=== PATIENT | female | born 1980 | race Two or more races ===

== ENCOUNTER → 2017-02-12 | Outpatient (CLI) | payer OTHER ==
--- NOTE | ~2017-02-12 | MY6 ---
[facility] A Service of [facility] & [facility] RADIOLOGY TEXT RESULTS PATIENT: ALICE BONILLA LOCATION: [facility] : [birth year] UNIT #: [id number] AGE: [address]: Zeeshan Doll MD SEX: F ORDER DR: [id number] [facility] [address] [place], [place] [address] [id number] O MR#: [id number] #: [id number] NAME: ALICE BONILLA : 1980 SEX: F STUDY DATE/TIME: 02/12/2017 8:01 UNIT: [facility] ROOM: STUDY DESCRIPTION: MY Mammogram Dx Dig Ramirez Attending Physician: Zeeshan Villalobos M.D. Referring Physician: Zeeshan Villalobos M.D. Ordering Physician: Zeeshan Villalobos M.D. Primary Care Physician: Zeeshan Villalobos M.D. MEDICAL IMAGING REPORT This report is preliminary unless electronic signature is present EXAM Bilateral diagnostic mammogram INDICATION Palpable abnormality right axilla. COMPARISON 03/28/2014, 07/18/2011. FINDINGS MLO, CC and straight ML views of both breasts were obtained. The study was reviewed with an FDA-approved CAD device. The breasts are very dense. They are unchanged in appearance from the prior study. No lymph nodes are visible in the axillary regions on either of these MLO views and none were visible on the previous studies. Ultrasound of the axillary region was performed by the technologist and myself. There are lymph nodes visible in the high axillary regions of each axilla. They all have fatty sara. None appear pathologic. This patient states that she has been feeling this abnormality in the right axilla for at least 3 years. She has a new doctor and she informed the doctor of the fact and he wanted to have this area reimaged. I also evaluated all of the breast tissue on the right side with ultrasound and did not see any abnormalities. IMPRESSION Bilateral diagnostic mammogram, right breast ultrasound and right axillary ultrasound do not show any evidence of malignancy. Patient has a few lymph nodes in each axillary region that are seen only on ultrasound. They are in the deep axilla. They are symmetric from side to side. They all have fatty sara. The patient states that the palpable abnormality she is complaining about in the right axilla has been present for at least 3 years without change. I told her to continue to evaluate the area. [facility] A Service of [facility] RADIOLOGY TEXT RESULTS PATIENT: ALICE BONILLA LOCATION: [facility] : 80 UNIT #: [id number] AGE: [address]: Zeeshan Doll MD SEX: F ORDER DR: there is a change or a suggestion of an increase in size then repeat imaging would be performed. Otherwise, routine screening at the next appropriate interval is recommended. Patients over the age of 40 are entered into a reminder system with target due date for the next mammogram. A result letter will also be sent to the patient. BIRADS: 2 Benign finding Dictated by... Jay Rodgers M.D. THIS IS AN ELECTRONICALLY VERIFIED REPORT Jay Rodgers M.D. at 02/12/2017 1:53 PM GRAHAM/adore TD: 02/12/2017 10:46 JOB #: [id number] MEDICAL IMAGING REPORT Page 1 of 1 COPY
--- NOTE | ~2017-02-12 | US24 ---
[facility] A Service of [facility] & [facility] RADIOLOGY TEXT RESULTS PATIENT: ALICE BONILLA LOCATION: [facility] : 80 UNIT #: [id number] AGE: [address]: Zeeshan Doll MD SEX: F ORDER DR: [id number] [facility] [address] [place], [place] [address] [id number] O MR#: [id number] Acc #: [id number] NAME: ALICE BONILLA : 1980 SEX: F STUDY DATE/TIME: 02/12/2017 8:38 UNIT: [facility] ROOM: STUDY DESCRIPTION: US Breast Unilateral Attending Physician: Zeeshan Doll Referring Physician: Zeeshan Doll Ordering Physician: Zeeshan Villalobos M.D. Primary Care Physician: Zeeshan Doll MEDICAL IMAGING REPORT This report is preliminary unless electronic signature is present EXAM Right breast ultrasound HISTORY Palpable abnormality right axilla. Patient states she has had this same palpable abnormality for at least 3 years, but she has no doctor and wants to evaluate it. She had a diagnostic mammogram today that was negative. FINDINGS Ultrasound the right axilla does show a few lymph nodes. They all have well-defined fatty sara and none are clearly pathologic. Similar appearing nodes are noted in the left axilla. As noted on the mammogram, no lymph nodes visible within the field of view. IMPRESSION The ultrasound today shows bilateral axillary lymph nodes. The ones the patient is palpating on the right are borderline prominent, but they all have normal fatty sara. The patient states that this palpable abnormality has been present at least 3 years without change. The ultrasound also evaluated entire breast parenchyma, and no abnormalities were identified in the breast parenchyma. Routine screening at the next appropriate age for this patient is recommend, and continued follow up clinical followup of the axillary fullness is recommended. Patients over the age of 40 are entered into a reminder system with target due date for the next mammogram. A result letter will also be sent to the patient. BIRADS: 2 Benign Finding STS. [facility] A Service of [facility] & [facility] RADIOLOGY TEXT RESULTS PATIENT: ALICE BONILLA LOCATION: [facility] : 80 UNIT #: [id number] AGE: [address]: Zeeshan Doll MD SEX: F ORDER DR: Dictated by... Jay Rodgers M.D. THIS IS AN ELECTRONICALLY VERIFIED REPORT Jay Rodgers M.D. at 02/12/2017 3:23 PM GRAHAM/alphonse TD: 02/12/2017 14:44 JOB #: [id number] MEDICAL IMAGING REPORT Page 1 of 1 COPY
--- NOTE | ~2017-02-12 | US98 ---
[facility] A Service of [facility] & [facility] RADIOLOGY TEXT RESULTS PATIENT: ALICE BONILLA LOCATION: [facility] : 80 UNIT #: [id number] AGE: [address]: Zeeshan Doll MD SEX: F ORDER DR: [id number] [facility] [address] [place], [place] [address] [id number] O MR#: [id number] Acc #: [id number] NAME: ALICE BONILLA : 1980 SEX: F STUDY DATE/TIME: 02/12/2017 9:08 UNIT: [facility] ROOM: STUDY DESCRIPTION: US Pelvic Non-OB Complete Attending Physician: Zeeshan Villalobos M.D. Referring Physician: Zeeshan Villalobos M.D. Ordering Physician: Zeeshan Villalobos M.D. Primary Care Physician: Zeeshan Villalobos M.D. MEDICAL IMAGING REPORT This report is preliminary unless electronic signature is present EXAM Pelvic ultrasound INDICATION Left lower quadrant abdominal and left-sided pelvic pain for the past year. PROCEDURE Beltran-scale and Doppler imaging of the pelvis via transabdominal and transvaginal approach. COMPARISON None. FINDINGS The uterus is anteverted and measures 9.8 x 5.8 x 5.8 cm. There is a small amount of complex fluid or material in the endometrial cavity that measures approximately 0.6 x 1.1 x 1 cm. There is an IUD in the endometrial cavity and the endometrium is not significantly thickened. The right ovary measures 2.1 x 4.0 x 2.1 cm. Left ovary measures 3.4 x 3.8 x 4.8 cm and contains a few small follicles. No significant free pelvic fluid. IMPRESSION 1. IUD in place. 2. There is a small amount of complex fluid in the endometrial cavity. Otherwise negative pelvic ultrasound. Dictated by... David Caceres M.D. THIS IS AN ELECTRONICALLY VERIFIED REPORT David Caceres M.D. at 02/16/2017 8:21 AM [facility] A Service of [facility] & [facility] RADIOLOGY TEXT RESULTS PATIENT: ALICE BONILLA LOCATION: [facility] : [birth year] UNIT #: [id number] AGE: [address]: Zeeshan Doll MD SEX: F ORDER DR: MEGGAN/adore TD: 02/13/2017 07:52 JOB #: [id number] MEDICAL IMAGING REPORT Page 1 of 1 COPY
== END | disposition home or self-care (01) ==
LOC: CMAM 07:43
DX: N63 Unspecified lump in breast (principal); R10.2 Pelvic and perineal pain; Z97.5 Presence of (intrauterine) contraceptive device
CPT/HCPCS: 76641; 76830; 76856; G0204